=== PATIENT | male | born 1990 | race Caucasian/White ===

== ENCOUNTER 2024-09-30 09:03 | Emergency (ER) | payer OTHER, SELFPAY ==
--- NOTE | ~2024-09-30 | XR_ITS ---
EXAMINATION: XR LUMBOSACRAL SPINE CLINICAL INFORMATION: R lbp, tingling down r leg COMPARISON: None available. TECHNIQUE: PA and lateral views FINDINGS: No acute cortical disruption or malalignment. Spina bifida occulta, S1 No lytic or blastic lesions. XR/XR lumbar spine 2-3V IMPRESSION: No acute fracture or gross listhesis. Spina bifida occulta, S1. Electronically signed by: Leonidas Londono MD 09/30/2024 11:32 AM EDT
[2024-09-30 09:16] VITALS: BP 155/90; PULSE 70; RESP 18; TEMP 36.6; O2SAT 98; BMI 27.8
--- NOTE | 2024-09-30 11:54 | ED_ITS ---
HPI - Back Pain/Injury General Chief Complaint: Back Pain/Injury Stated Complaint: Back pain Time Seen by Provider: 09/30/24 11:47 Source: patient Mode of arrival: ambulatory Limitations: no limitations History of Present Illness ED Provider: MARILUZ VASQUEZ PA-C HPI Narrative: 34-year-old male presents to the ED today for evaluation of back pain x1 week. Pain is localized to the right side of his lower back. He feels as though the pain runs into his right hip. Admits to intermittent tingling to the right lower extremity. He was evaluated for this by his PCP approximately 1 week ago. They prescribed him methocarbamol and high-dose Tylenol which he felt temporarily improved his pain up until yesterday when his pain worsened. Reports pain with bending over to tie his shoes. Pain is making it difficult for him to sleep at night. He also has physical therapy scheduled for November of this year. Denies any enticing injury/trauma/fall. 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 No heavy lifting. Denies IV drug use. Denies history of spinal surgery. Denies fever, chills, neck pain, bowel or bladder incontinence or retention, numbness/tingling/weakness in the lower extremities, dysuria, hematuria, saddle anesthesia. Related Data Previous Rx's ?Medication ?Instructions ?Recorded cyclobenzaprine 5 mg tablet 5 mg PO Q8H PRN muscle spa sm 3 09/30/24 days #9 tabs lidocaine 5 % topical patch 1 patch topical DAILY #15 ea 09/30/24 (Lidoderm) prednisone 50 mg tablet 50 mg PO DAILY 5 days #5 tab s 09/30/24 Allergies Allergy/AdvReac Type Severity Reaction Status Date / Time nut - unspecified Allergy Unknown Verified 09/30/24 09:17 Review of Systems Review of Systems: Constitutional: No fever, chills, fatigue, night sweats, weight changes ENT/Mouth: No ear pain, hearing loss, nasal congestion, sinus pain, rhinorrhea, sore throat Eyes: No eye pain, swelling, redness, vision changes, discharge Cardio: No chest pain, palpitations, COBIAN, orthopnea, peripheral edema Pulm: No SOB, cough, sputum, wheezing, dyspnea, hemoptysis GI: No nausea, vomiting, hematemesis, abdominal pain, diarrhea, constipation, hematochezia, melena : No irregular bleeding, dysuria, frequency, urgency, hesitancy, hematuria, flank pain, urinary flow changes, urinary incontinence or retention MSK: +back pain, No neck pain, joint pain, myalgias Skin: No lesions, rashes Neuro: No weakness, numbness, paresthesias, LOC, dizziness, headache All other systems reviewed and are negative. [facility] Past Medical History Attestation statement: The following information was validated with the patient. Source: old records reviewed and nursing notes reviewed Family History Family History Father No problems noted. Mother No problems noted. Paternal Grandfather Prostate cancer Social History Social History Advance Directives: No Advance Directives Information Provided: No Do you have a plan to hurt others: No Plan Physical Exam Vital Signs: Vital Signs: Last Vital Signs Temp 98 F 09/30/24 12:49 Pulse 70 09/30/24 12:49 Resp 18 09/30/24 12:49 BP 155/90 H 09/30/24 12:49 Pulse Ox 98 09/30/24 12:49 O2 Del Method Room Air 09/30/24 12:49 BMI result Body Mass Index 27.8 Vital signs stable, afebrile Const: General: cooperative, healthy appearing, comfortable, no acute distress, alert, awake and Physically active Orientation/consciousness: patient oriented x3 HEENT: Head: Yes normal to inspection, Yes normocephalic and Yes atraumatic Eyes: General: appearance normal, both eyes and all related structures Pupi ls: Equal, round and reactive pupils present EOM: EOMs intact bilaterally Neck: Other: + no cervical midline spinous tenderness or step-off deformity. Neck: Yes normal visual inspection, Yes full ROM and Yes no meningeal signs Resp: Effort & Inspection: normal respiratory effort Auscultation: clear to auscultation bilaterally Cardio: Rate: regular rate Rhythm: regular rhythm GI: Inspection: Yes normal to inspection Palpation (GI): Soft to palpation and nontender : General: Yes no CVA tenderness Back/Spine/Pelvis: Other: No midline spinous tenderness. No paraspinal muscle tenderness. No step off deformity. Back: no CVA tenderness Neuro: Other: Strength 5/5 intact throughout.? No saddle anesthesia.? Sensation intact to light touch.? Neurovascular intact distally.? General: patient oriented x3, gait normal and no meningeal signs Cranial nerves: Yes Equal, round and reactive pupils present Gait exam (Neuro): Normal gait present Course Course Course Narrative: X-ray lumbar spine unremarkable. No fracture. Exam consistent with sciatica versus lumbar radiculopathy. A dose of Toradol given in the ED today. Will trial prednisone and Flexeril. Advised Tylenol at home. No back pain red flags. He has physical therapy scheduled in 1 month. I advised to keep this appointment. Patient has remained stable throughout ED visit today. Discussed worrisome signs and symptoms and when to return to the ED. All questions answered at this time. Patient is agreeable with disposition and stable for discharge. Medications Administered Discontinued Medications Generic Name Dose Route Start Last Admin Trade Name Freq PRN Reason Stop Dose Admin Ketorolac Tromethamine 30 mg 09/30/24 11:54 09/30/24 12:12 Ketorolac Tromethamine 30 Mg/Ml Vial IM 09/30/24 11:55 30 mg ONCE ONE Administration Medical Decision Making Medical Decision Making MDM Narrative: 34-year-old male presents to the ED today for evaluation of back pain x1 week. Patient is hypertensive, vitals otherwise WNL. He is well-appearing and in no acute distress. Ambulating with steady gait. On exam, there is no midline spinous tenderness or step-off deformity. There is really no tenderness over his right paraspinal musculature. Strength to bilateral lower extremities intact, sensation intact to light touch. no cvat b/l. Concern for MSK sprain/strain, fracture, subluxation, disc herniation, sciatica. Unlikely cord compression, cauda equina, Guillain-[place], epidural abscess. Plan for imaging and pain control. Differential Diagnosis Differential Diagnoses: The differential diagnosis associated with the presentation includes as above Admission/Observation Not indicated. Independent Interpretation I performed an independent interpretation of an: Plain X-Ray Interpretation: X-ray lumbar spine without acute fracture Radiology Impression Discussion of test interpretation with radiology: I have reviewed the radiologist's reading. Radiologist Impression: Date of Service: 09/30/24 Procedure(s): XR lumbar spine 2-3V Accession Number(s): [id number] cc: Mariluz Vasquez; Jason Krueger MD~ EXAMINATION: XR LUMBOSACRAL SPINE CLINICAL INFORMATION: R lbp, tingling down r leg COMPARISON: None available. TECHNIQUE: PA and lateral views FINDINGS: No acute cortical disruption or malalignment. Spina bifida occulta, S1 No lytic or blastic lesions. XR/XR lumbar spine 2-3V IMPRESSION: No acute fracture or gross listhesis. Spina bifida occulta, S1. Electronically signed by: Leonidas Londono MD 09/30/2024 11:32 AM EDT RP External Record Review External record reviewed: Inpatient record Prescription Management I considered prescription management with: Pain Medication and Other (Muscle relaxer) Social Determinants Patient?s care significantly limited by Social Determinants of Health including: Other Social Determinant of Health Critical Care Time Critical Care Time Critical Care Time: No Discharge Plan Discharge Clinical Impression: Lumbar radiculopathy Patient Disposition: Home, Self-Care Instructions: Back Pain (ED) Additional Instructions: You were evaluated in the Emergency Department today for your back pain.? Your evaluation did not show signs of medical conditions requiring emergent intervention at this time. Avoid bending, lifting, or twisting. Use ice several times per day for 20 minutes at a time for the next 48 hours and then change to heat. I recommend you take 600mg ibuprofen every 6 hours or tylenol 650mg every 6 hours as needed for pain. If needed, you can alternate these medications so that you take one medication every 3 hours. For example, at noon take ibuprofen, then at 3pm take tylenol, then at 6pm take ibuprofen. Flexeril is a muscle relaxer. Take this at night as it makes you drowsy. Do not drive, drink alcohol, or operate machinery while taking it. Lidoderm patches are numbing patches. Apply to painful areas. Prednisone is a steroid that has been sent to your pharmacy. Take this as prescribed for the next 5 days. Please schedule an appointment for follow-up with your primary care provider this week for further evaluation of your symptoms. Return to the Emergency Department if you experience worsening back pain, difficulty walking, fevers, numbness, tingling, incontinence, or any other concerning symptoms. In the case of an emergency call 911. Prescriptions: New cyclobenzaprine 5 mg tablet 5 mg PO Q8H PRN (Reason: muscle spasm) 3 Days Qty: 9 0RF lidocaine [Lidoderm] 5 % adhesive patch,medicated 1 patch topical DAILY Qty: 15 0RF Rx Instructions: leave on most painful area for up to 12 hrs prednisone 50 mg tablet 50 mg PO DAILY 5 Days Qty: 5 0RF Referrals: Jason Krueger MD [Primary Care Provider, Internal Medicine] Interventions: ED Discharge Assessment Last Done: 09/30/24 12:49 Discharge Date/Time: 09/30/24 13:04 Print Language: Luxembourger
[2024-09-30 12:49] VITALS: BP 155/90; PULSE 70; RESP 18; TEMP 36.6; O2SAT 98
--- OUTSIDE RECORDS SUMMARY | 2024-09-30 13:29 | XMS_ITS | Clinical Summary ---
Author Organization [facility] Address [address] [place] [address] Care Team Providers Care Dry End Operator Name Role Phone Pcp, No Primary Care Provider Unavailabl e Allergies No known active allergies Medications codeine-guaiFEN esin (GUAIFENESIN AC) 10-100 mg/5 mL syrup Take 10 mLs by mouth every 6 (six) hours as needed for Cough 118 mL 02/16/2018 Active albuterol (PROVENTIL HFA;VENTOLIN HFA;PROAIR HFA) 90 mcg/actuation HFA inhaler Inhale 1-2 puffs into the lungs every 4 (four) hours as needed for Wheezing 1 Inhaler 02/16/2018 Active Family History Medical History Relation Name Comments No Known Problems Father No Known Problems Mother Relation Name Status Comments Father Mother Social History Tobacco Use Types Packs/Day Years Used Date Smoking Tobacco: Never Smokeless Tobacco: Never Alcohol Use Standard Drinks/Week Comments No 0 (1 standard drink = 0.6 oz pur e alcohol) AUDIT-C Answer Date Recorded Frequency of Alcohol Consumption Never 02/16/2018 Average Number of Drinks Not on file 019 Frequency of Binge Drinking Not on file 06/2018 Sex and Gender Information Value Date Recorded Sex Assigned at Not on file Legal Sex Male 7:58 PM EST Gender Identity Not on file Sexual Orientation Not on file Last Filed Vital Signs Vital Sign Reading Time Taken Comments Blood Pressure 142/89 02/16/2018 12:49 PM EST Pulse 100 02/16/2018 12:49 PM EST Temperature 38.2 C (100.8 F) 02/16/2018 12:49 PM EST Respiratory Rate 16 02/16/2018 12:49 PM EST Oxygen Saturation 95% 02/16/2018 12:49 PM EST Inhaled Oxygen Concentration - - Weight 90.7 kg (200 lb) 02/16/2018 12:52 PM EST Height 182.9 cm (6') 02/16/2018 12:52 PM EST Body Mass Index 27.12 02/16/2018 12:52 PM EST Plan of Treatment Health Maintenance Due Date Last Done Comments HIV screening 01/31/2001 Hepatitis C screening 01/31/2006 Tetanus adult (Td q 10,TDAP once) 2008 Covid-19 vaccine series ( - 2023-25 season) 2023 Influenza vaccine 10/13/2024 RSV Immunization (1 - 1-dose 75+ series) 01/31/2063 Meningococcal Vaccine Aged Out No wilfredo kristopher eligible based on patient's age to complete this topic Pneumococcal Vaccine (2 - 49 years) Aged Out No longer eligible based on patient's age to complete this topic Care Teams Dry End Operator Relationship Specialty Start Date End Date Pcp, No PCP - General 02/16/18
--- OUTSIDE RECORDS SUMMARY | 2024-09-30 13:29 | XMS_ITS | Clinical Summary ---
Author Organization [facility] Address [address] [address] Phone Care Team Providers Care Business Performance Specialist Name Role Phone Jason Krueger MD Primary Care Provider [phone] Jason Krueger MD Unavailable Allergies No known active allergies Medications methocarbamoL (ROBAXIN) 500 MG tablet Take 1 tablet (500 mg total) by mouth 3 (three) times a day. 21 tablet 09/25/2024 Active ibuprofen (ADVIL,MOTRIN) 800 MG tablet Take 1 tablet (800 mg total) by mouth every 8 (eight) hours as needed for pain (specific location in comments). 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 While he is not interested for that solution I did suggest that he should follow-up with [facility] urology where he had the vasectomy previously. He was amenable to that suggestion we will set up a referral. Routine general medical exam ination at a health care facility 12/28/2021 Assessment & Plan (01/09/2024 3:34 PM EST): His exam is unremarkable. Good height to weight ratio, continue exercising and good diet. Will forego labs but will obtain labs prior to next physical. Assessment & Plan (01/01/2023 8:39 AM EST): Exam unremarkable. We reviewed the labs from last year and he had a slightly low white cell count so we will repeat today along with a lipid profile and Chem-7. See him back in 1 years time, administer a flu vaccine today, advised against COVID-vaccine, advocated for Td vaccine which can be given in 1 to 2 years when it is due. Assessment & Plan (12/28/2021 8:56 AM EST): Exam is unremarkable, will obtain screening labs including hemoglobin A1c, hepatitis C, HIV, Chem-7, CBC, lipid profile. Patient can access the labs over the portal and I have encouraged him to send me a message with any questions. We can see the patient back in 1 years time. Family planning 12/28/2021 Assessment & Plan (12/28/2021 8:55 AM EST): Patient is going for a vasectomy, referral made to Dr. Scherer at [facility] urology Encounters Date Type Department Care Team Description 09/25/2024 8:00 AM EDT Office Visit [facility] Internal Medicine [address] [place] [address] Barrett Gold PA-C Strain of lumbar region, initial encounter (Primary Dx) 09/22/2024 Telephone [facility] Internal Medicine [address] [place] [address] Jason Krueger MD Triage (Low back / hip pain for 3 weeks) from Last 3 Months Immunizations Immunization Administration Dates Next Due COVID-19 (Pre-12/04) Moderna Vaccine, mRNA, PF 01/19/2021,06/17/2020,05/20/2020 Influenza Quadrivalent Preservative Free IM 12/14,12/28/2021 Td (adult) 5 Lf Tetanus Toxo id, PF, Adsorbed 01/09/2024 Family History Relation Status Comments Father Alive Mother Alive Social History Tobacco Use Types Packs/Day Years Used Date Smoking Tobacco: Former Cigarettes Q uit: 05/2016 Smokeless Tobacco: Never Tobacco Cessation:Counseling Given: Not Answered Comments:1 cigarette here and there Alcohol Use Standard Drinks/Week Comments Yes 0 (1 standard drink = 0.6 oz pur e alcohol) 3-4 drinks, 2-4 x month Child or Family Care Answer Date Record ed Do you have problems with on e of the following making it difficult for you to work, study, or receive health care? No 01/02/2024 Education Answer Date Recorded Are you interested in help w ith more adult education (for example, completing high school, GED, job training, learning the [place] language, technical skills, or developing parenting skills)? No 01/02/2024 Are you concerned about learning? Not on file 01/02/2024 No 01/02/2024 Yes 01/02/2024 Food Answer Date Recorded Within the past 6 months we worried whether our food would run out before we got money to buy more. Never True 01/02/2024 Within the past 6 months the food we bought just didn't last and we didn't have enough money to get more. Never True Residential Stability Answer Date Recor ded What is your housing situation today? I have marissa sing 01/02/2024 How many times have you move d in the past 12 months? Zero (I did not move) 01/02/2024 Paying for Meds Answer Date Recorded Do you have trouble paying for medicines? No 01/02/2024 Paying Utility Bills Answer Date Record ed Do you have trouble paying your heating or elect ricity bill? No 01/02/2024 Transportation Answer Date Recorded Has the lack of transportati on kept you from medical appointments or from getting medications? No 01/02/2024 Unemployment Answer Date Recorded Are you currently unemployed or working on a part-time or temporary basis, and looking for work? No 01/02/2024 Digital Access Answer Date Recorded No 01/02/2024 Yes 01/02/2024 Do you have reliable internet access at home? Ye s 01/02/2024 Do you have a device (e.g., phone, tablet, computer) with a working camera? Yes 01/02/2024 Intimate Partner Violence Answer Date R ecorded Denied Basic Needs Not on file 01/02/2024 In the past 12 months have y ou been in a relationship with a person who hurts, threatens, or tries to control you? No 01/02/2024 Worried food would run out Not on file 01/01 In the past 12 months have y ou been in a relationship with a person who hurts, threatens, or tries to control you? No 01/02/2024 Sex and Gender Information Value Date Recorded Sex Assigned at Male 12/27/2021 5:49 PM EST Legal Sex Male 12:16 PM EDT Gender Identity Male 12/27/2021 5:49 PM EST Sexual Orientation Straight 12/27/2021 5: 49 PM EST Last Filed Vital Signs Vital Sign Reading Time Taken Comments Blood Pressure 104/68 09/25/2024 8:14 AM EDT Pulse 75 09/25/2024 8:14 AM EDT Temperature 36.4 C (97.5 F) 09/25/2024 8:14 AM EDT Respiratory Rate 20 09/25/2024 8:14 AM EDT Oxygen Saturation 98% 09/25/2024 8:14 AM EDT Inhaled Oxygen Concentration - - Weight 92.6 kg (204 lb 3.2 oz) 09/25/2024 8:14 A M EDT Height 181 cm (5' 11.26 ) 09/25/2024 8:14 AM EDT Body Mass Index 28.27 09/25/2024 8:14 AM EDT Plan of Treatment Upcoming Encounters Date Type Department Care Team (Late st Contact Info) Description 10/02/2024 9:15 AM EDT Office Visit [facility] Internal Medicine [address] [place] [address] Jason Krueger MD [address] [place], [place] 12/08/2024 4:30 PM EDT Office Visit [facility] [address], [place] [phone] Barrett Gold PA-C [address] [place] [address] Sky Goncalves, PT [address] [place], [place] [phone] 12/15/2024 4:30 PM EST Office Visit [facility] [address] [place] [address] Barrett Gold PA-C [address] [place] [address] Sky Goncalves, PT [address] [place] [address] 12/22/2024 4:30 PM EST Office Visit [facility] [address] [place] [address] Barrett Gold PA-C [address] [place] [phone] Sky Goncalves, PT [address] [place] [address] 12/29/2024 4:30 PM EST Office Visit [address] [address] Barrett Gold PA-C [address] [place] [phone] Sky Goncalves, PT [address] [place] [address] 01/05/2025 4:30 PM EST Office Visit [facility] [address] [place] [address] Barrett Gold PA-C [address] [place] [phone] Sky Goncalves, PT [address] [place] [address] 01/12/2025 4:30 PM EST Office Visit [facility] [address] [place] [address] Barrett Gold PA-C [address] [place] [address] [email or web address] Sky Goncalves, PT [address], [place] [phone] 01/13/2025 3:00 PM EST Office Visit [facility] Internal Medicine [address] [place] [address] Jason Krueger MD [address] [place] [address] 01/19/2025 4:30 PM EST Office Visit [address] [address] Barrett Gold PA-C [address] [place] [phone] Sky Goncalves, PT [address] [place], [place] [phone] 01/26/2025 4:30 PM EST Office Visit [address] [phone] Barrett Gold PA-C [address] [place] [address] Sky Goncalves, PT [address] [place], [place] [phone] Health Maintenance Due Date Last Done Comments SMOKING Hx and SMOKELESS TOBACCO SCREENING 01/31/2001 COVID-19 VACCINE (4 - 2023-2 5 season) 2023 01/19/2021, 06/17/2020, 05/20/2020 DEPRESSION SCREENING 01/01/2025 01/02/2024 SCREENING FOR DIABETES 01/01/2026 , 12/28/2021 LIPID PANEL 01/02/2028 01/01/2023, 01/01/2023, 12/28/2021 Adult Td,Tdap Booster 01/08/2034 01/09/2024 HEPATITIS C SCREENING Completed 12/28/2021 , 12/28/2021 HIV ONE-TIME SCREENING (18-6 5 YEARS) Completed 12/28/2021 HEPATITIS A VACCINES Aged Out No long er eligible based on patient's age to complete this topic HIB VACCINES Aged Out No longer eligi ble based on patient's age to complete this topic MENINGOCOCCAL VACCINES (ACWY) Aged Out No longer eligible based on patient's age to complete this topic MENINGOCOCCAL VACCINES (B) Aged Out N o longer eligible based on patient's age to complete this topic PNEUMOCOCCAL VACCINES (0-49 years) Aged Out No longer eligible b ased on patient's age to complete this topic Medical Devices Not on file Procedures Procedure Name Priority Date/Time Associated Diagnosis Comments LIPID PANEL Routine 01/01/2023 8:59 AM EST Routine general medical examination at a health care facility HEPATITIS C ANTIBODY, QUALITATIVE Routine 12/28/2021 8:52 AM EST Need for hepatitis C screening test from Last 3 Months or Most Recently Relevant to Health Maintenance Results * (ABNORMAL) Lipid panel (01/01/2023 8:59 AM EST) HDL 58 mg/dL [facility] Comment: Interpretation <40 mg/dL: Low HDL cholesterol (major risk factor for CHD) Greater than or equal to 60 mg/dL: High HDL cholesterol ( negative risk factor for CHD) HDL - cholesterol is affected by a number of factors, e.g. smoking, excerise, hormones, sex and age. CHOLESTEROL 190 0 - 240 mg/dL [facility] TRIGLYCERIDES 96 30 - 160 mg/dL [facility] LDL 113 50 - 129 mg/dL [facility] Comment: LDL levels in terms of risk for coronary heart disease: <100 mg/dL: Optimal 100-129 mg/dL: Near or above optimal 130-159 mg/dL: Borderline high 160-189 mg/dL: High >190 mg/dL: Very High CARDIAC RISK RATIO 3.3(L) 3.4 - 5.0 [facility] Blood 01/01/2023 8:59 AM EST 01/01/2023 9:00 AM EST us Jason Krueger MD LAB BLOOD ORDERABLES Final Resul t Performing Organization Address City/[facility]/ZIP Co de Phone Number [address] [address] * Hepatitis C antibody, qualitative (12/28/2021 8:52 AM EST) HCV NON-REACTIV E NON-REACTI VE [facility] Blood 12/28/2021 8:52 AM EST 12/28/2021 8:57 AM EST Jason Krueger MD LAB BLOOD ORDERABLES Final Resul t Performing Organization Address City/[facility] de Phone Number [address] [address] from Last 3 Months or Most Recently Relevant to Health Maintenance Insurance AETNA O POS EPO AETNA O POS EPO AETNA O POS EPO AETNA O POS EPO AETNA HMO POS EPO [facility] CIG[employer] DENT[employer] Care Teams Business Performance Specialist Relationship Specialty Start Date End Date Jason Krueger MD [address] [place] [address] [email or web address] PCP - General Internal Medicine 12/28/21 Jason Krueger MD [address] [place] [address] [email or web address] Insurance Assigned Provider 05/19/23 Additional Source Comments The information contained in this document represents components of the legal health record. It is not the complete legal health record.[facility]
== END 2024-09-30 13:04 | disposition home or self-care (01) ==
PROVIDERS: Emergency Provider Emergency Medicine; PCP Internal Medicine
DX: M54.16 Radiculopathy, lumbar region (principal); M54.50 Low back pain, unspecified
CPT/HCPCS: 72100; 96372; 99283; 99284; J1885

== ENCOUNTER → 2024-09-30 11:21 | Outpatient (BNV) | payer OTHER, SELFPAY | PROVIDERS: Emergency Provider Emergency Medicine; PCP Internal Medicine; Visit Provider Radiology Diagnostic Radiology | DX: M54.50 Low back pain, unspecified (principal) | CPT/HCPCS: 72100 ==